=== PATIENT | female | born 1975 | race African-American/Black ===

== ENCOUNTER 2018-12-07 09:43 | Emergency (ER) | payer OTHER ==
--- OUTSIDE RECORDS SUMMARY | 2018-12-07 10:05 | XMS REPORT | Continuity of Care Document ---
:1975 Author Organization [facility] Care Team Providers Name Role Phone [facility] Unavailable Unavailable Problems Problem Status Onset Classification Date Comments Source Date Reported Essential Active Problem 10/02/2017 Comp hypertension [facility] Shortness of Active Problem 10/02/2017 Comp breath [facility] Abnormal EKG Active Diagnosis 10/02/2017 Comp [facility] Morbid obesity Active Problem 10/02/2017 Comp due to excess Heart calories Care Body mass index Active Problem 10/02/2017 Comp of 40.0-44.9 in Heart adult [facility] Insulin Active Problem 10/02/2017 Comp resistance [facility] Atypical chest Active Diagnosis 10/02/2017 Comp pain [facility] Family history Active Problem 10/02/2017 Comp of premature CAD [facility] Medications Medication Details Route Status Patient Ordering Order Source Instructions Provider Date Vitamin D 1 tab NA Active 2000 daily [place] [facility] 018 [facility] levothyroxine 1 tab(s) orally Active 175 mcg (0.175 [place] [facility] mg) orally once 018 [facility] Tradjenta 1 tab(s) orally Active 5 mg orally [place] [facility] once a day 018 [facility] irbesartan 1 tab(s) orally Active 150 mg orally [place] Comp once a day 018 [facility] Allergies, Adverse Reactions, Alerts Substance Category Reaction Severity Reaction Status Date Comments Source type Reported aspirin Adverse Info Not Adverse Active Comp Reaction Available Reaction 8 [facility] ibuprofen Adverse Info Not Adverse Active Comp Reaction Available Reaction 8 [facility] Immunizations No Data Provided for This Section Results No Data Provided for This Section Pathology Reports No Data Provided for This Section Diagnostic Reports No Data Provided for This Section Consultation Notes No Data Provided for This Section Discharge Summaries No Data Provided for This Section History and Physicals No Data Provided for This Section Vital Signs Vital Sign Value Date Comments Source Diastolic (mm Hg) 86 09/24/2017 Comp [facility] Systolic (mm Hg) 128 09/24/2017 [facility] Weight 250 09/24/2017 [facility] Height 63.5 09/24/2017 [facility] Diastolic (mm Hg) 90 08/13/2017 [facility] Systolic (mm Hg) 142 08/13/2017 [facility] Weight 251 08/13/2017 [facility] Height 63.5 08/13/2017 [facility] Encounters No Data Provided for This Section Procedures No Data Provided for This Section Assessment and Plan No Data Provided for This Section Plan of Care No Data Provided for This Section Social History No Data Provided for This Section Family History No Data Provided for This Section Advance Directives No Data Provided for This Section Functional Status No Data Provided for This Section
--- OUTSIDE RECORDS SUMMARY | 2018-12-07 10:05 | XMS REPORT ---
:1975 Author Organization [employer] Care Team Providers Name Role Phone [facility] Provider Role Unavailable Allergies No Known Allergies Problems Problem Type Condition Code Onset Dates Condition Status Problem Essential (primary) hypertension I10 Active Medications No Known Medications Results No Known Results Summary Purpose [employer] Submission
--- OUTSIDE RECORDS SUMMARY | 2018-12-07 10:05 | XMS REPORT ---
:1975 Author Organization [employer] Care Team Providers Name Role Phone David Cor[facility] Provider Role Unavailable Allergies No Known Allergies Problems Problem Type Condition Code Onset Dates Condition Status Problem Essential (primary) hypertension I10 Active Problem Shortness of breath R06.02 Active Problem Abnormal EKG R94.31 Active Problem Morbid (severe) obesity due to E66.01 Active excess calories Problem Body mass index (BMI) of 40.0-44.9 Z68.41 Active in adult Problem Insulin resistance E88.81 Active Problem Atypical chest pain R07.89 Active Problem Family history of premature CAD Z82.49 Active Medications No Known Medications Results No Known Results Summary Purpose [employer] Submission
--- OUTSIDE RECORDS SUMMARY | 2018-12-07 10:05 | XMS REPORT | Clinical Summary ---
:1975 Author Organization [facility] Address [address] [place] [address] Care Team Providers Name Role Phone Asked, No Pcp Primary Care Provider Unavailable Allergies Active Allergy Reactions Severity Noted Date Comments Aspirin Other (See Comments) High 07/07/2015 Other reaction(s): Headache Ibuprofen Other (See Comments) High 07/07/2015 Other reaction(s): Headache Medications Medication Sig Dispensed Refills Start Date End Date Status levothyroxine Take 1 tablet 0 Active (SYNTHROID, by mouth LEVOXYL) 200 mcg daily. tablet METFORMIN HCL Take by mouth. 0 Active (METFORMIN ORAL) linagliptin Take by mouth 0 Active (TRADJENTA ORAL) daily. irbesartan (AVAPRO) Take 300 mg by 0 Active 300 MG tablet mouth nightly. nitrofurantoin, Take 1 capsule 10 capsule 0 04/13/2018 Discontinued macrocrystal-monohy (100 mg total) 8 drate, (MACROBID) by mouth 2 100 MG capsule (two) times a day for 5 days. nitrofurantoin, Take 1 capsule 10 capsule 0 04/13/2018 macrocrystal-monohy (100 mg total) 8 drate, (MACROBID) by mouth 2 100 MG capsule (two) times a day for 5 days. nitrofurantoin, Take 1 capsule 10 capsule 0 04/13/2018 macrocrystal-monohy (100 mg total) 8 drate, (MACROBID) by mouth 2 100 MG capsule (two) times a day for 5 days. pantoprazole Take 1 tablet 14 tablet 0 04/19/2018 (PROTONIX) 40 MG EC (40 mg total) 8 tablet by mouth daily for 14 days. traMADol (ULTRAM) Take 1 tablet 15 tablet 0 04/19/2018 50 mg tablet (50 mg total) 8 by mouth every 6 (six) hours as needed for moderate pain for up to 7 days. dicyclomine Take 1 tablet 60 tablet 0 05/07/2018 (BENTYL) 20 mg (20 mg total) 9 tablet by mouth 2 (two) times a day for 30 days. Active Problems Problem Noted Date Abnormal glucose level 07/07/2015 Cyst of breast 07/07/2015 Fatigue 07/07/2015 Hypothyroidism 07/07/2015 Vitamin D deficiency 07/07/2015 Malignant neoplasm of thyroid gland 07/07/2015 Encounters Date Type Specialty Care Team Description 07/13/2018 Office Visit Wound Care Ravi Quinn MD 05/07/2018 Emergency Emergency Medicine Chantel Fierro-Guanakito Abdominal pain, MD Adithya unspecified abdominal location (Primary Dx) 04/19/2018 Emergency Emergency Medicine Atif Man Generalized abdominal pain (Primary Dx); MD Gutierrez Uterine leiomyoma, unspecified location 04/13/2018 Emergency Emergency Medicine [facility], Acute UTI (Primary Dx); MD Juan Manuel Uterine leiomyoma, unspecified location 04/13/2018 Travel after 12/06/2017 Immunizations Name Dates Previously Given Next Due Influenza Trivalent 03/25/2014 Social History Tobacco Use Types Packs/Day Years Used Date Never Smoker Smokeless Tobacco: Never Used Alcohol Use Drinks/Week oz/Week Comments No Sex Assigned at Date Recorded Female 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 Last Filed Vital Signs Vital Sign Reading Time Taken Blood Pressure 123/62 05/07/2018 3:37 PM ADVERTISING ANALYST Pulse 74 05/07/2018 3:37 PM ADVERTISING ANALYST Temperature 36.9 C (98.4 F) 05/07/2018 3:37 PM ADVERTISING ANALYST Respiratory Rate 18 05/07/2018 3:37 PM ADVERTISING ANALYST Oxygen Saturation 99% 05/07/2018 3:37 PM ADVERTISING ANALYST Inhaled Oxygen Concentration - - Weight 113 kg (250 lb) 05/07/2018 3:37 PM ADVERTISING ANALYST Height 162.6 cm (5' 4") 05/07/2018 3:37 PM ADVERTISING ANALYST Body Mass Index 42.91 05/07/2018 3:37 PM ADVERTISING ANALYST Plan of Treatment Health Maintenance Due Date Last Done Comments DIABETIC RETINAL EYE EXAM 1975 DIABETIC FOOT EXAM 1983 INFLUENZA VACCINE 12/23/2018 03/25/2014 Procedures Procedure Name Priority Date/Time Associated Comments Diagnosis GRAM STAIN Routine 07/13/2018 1:15 Results for this PM ADVERTISING ANALYST procedure are in the results section. ANAEROBIC CULTURE Routine 07/13/2018 1:15 Results for this PM ADVERTISING ANALYST procedure are in the results section. AEROBIC CULTURE Routine 07/13/2018 1:15 Results for this PM ADVERTISING ANALYST procedure are in the results section. US PELVIC TRANSVAGINAL STAT 04/19/2018 6:02 Results for this AM ADVERTISING ANALYST procedure are in the results section. US PELVIC STAT 04/19/2018 6:02 Results for this TRANSABDOMINAL AM ADVERTISING ANALYST procedure are in the results section. URINALYSIS, AUTOMATED STAT 04/19/2018 5:21 Results for this WITH MICROSCOPY AM ADVERTISING ANALYST procedure are in the results section. ESTIMATED GFR STAT 04/19/2018 5:00 Results for this AM ADVERTISING ANALYST procedure are in the results section. LIPASE LEVEL STAT 04/19/2018 5:00 Results for this AM ADVERTISING ANALYST procedure are in the results section. COMPREHENSIVE METABOLIC STAT 04/19/2018 5:00 Results for this PANEL AM ADVERTISING ANALYST procedure are in the results section. HC COMPLETE BLD COUNT STAT 04/19/2018 5:00 Results for this W/AUTO DIFF AM ADVERTISING ANALYST procedure are in the results section. CT ABDOMEN PELVIS W STAT 04/13/2018 1:51 Results for this CONTRAST PM ADVERTISING ANALYST procedure are in the results section. ECG 12-LEAD STAT 04/13/2018 12:39 Results for this PM ADVERTISING ANALYST procedure are in the results section. ECG ED PRELIMINARY Routine 04/13/2018 12:30 Results for this INTERPRETATION PM ADVERTISING ANALYST procedure are in the results section. ESTIMATED GFR STAT 04/13/2018 12:25 Results for this PM ADVERTISING ANALYST procedure are in the results section. LIPASE LEVEL STAT 04/13/2018 12:25 Results for this PM ADVERTISING ANALYST procedure are in the results section. COMPREHENSIVE METABOLIC STAT 04/13/2018 12:25 Results for this PANEL PM ADVERTISING ANALYST procedure are in the results section. HCG QUALITATIVE, URINE STAT 04/13/2018 12:25 Results for this SCREEN PM ADVERTISING ANALYST procedure are in the results section. URINALYSIS SCREEN AND STAT 04/13/2018 12:25 Results for this MICROSCOPY, WITH REFLEX PM ADVERTISING ANALYST procedure are in TO CULTURE the results section. HC COMPLETE BLD COUNT STAT 04/13/2018 12:25 Results for this W/AUTO DIFF PM ADVERTISING ANALYST procedure are in the results section. GRAM STAIN STAT 04/13/2018 12:25 Results for this PM ADVERTISING ANALYST procedure are in the results section. URINE CULTURE STAT 04/13/2018 12:25 Results for this PM ADVERTISING ANALYST procedure are in the results section. after 12/06/2017 Results Aerobic culture (07/13/2018 1:15 PM ADVERTISING ANALYST) Aerobic culture Proteus mirabilis [facility] isolate [facility] HOSPITAL This organism is NOT a carbapenemase producing organism. (A) Comment: Specimen Information Specimen Source: Wound Specimen Site: Abdomen Aerobic culture Enterococcus faecalis [facility] isolate Recovered in Broth only: HOSPITAL The performance characteristics of this assay on this isolate were validated by the Microbiology Laboratory at [facility].This source has not been approved by the U.S. Food and Drug Administration.The results are not intended to be used as the sole means for clinical diagnosis or patient management.The Microbiology Laboratory is authorized under the clinical Laboratory Improvement Amendments of 1988 (CLIA-88) to perform high complexity testing. The performance characteristics of this assay on this isolate were validated by the Microbiology Laboratory at [facility].This source has not been approved by the U.S. Food and Drug Administration.The results are not intended to be used as the sole means for clinical diagnosis or patient management.The Microbiology Laboratory is authorized under the clinical Laboratory Improvement Amendments of 1988 (CLIA-88) to perform high complexity testing. (A) Specimen Wound Organism Antibiotic Method Susceptibility Proteus mirabilis Amikacin LIAM 8 mcg/mL: Susceptible Proteus mirabilis Amoxicillin/Clavulanate LIAM <=2/1 mcg/mL: Susceptible Proteus mirabilis Ampicillin/Sulbactam LIAM <=1/0.5 mcg/mL: Susceptible Proteus mirabilis Ampicillin LIAM <=2 mcg/mL: Susceptible Proteus mirabilis Aztreonam LIAM <=1 mcg/mL: Susceptible Proteus mirabilis Cefazolin LIAM 8 mcg/mL: Resistant Proteus mirabilis Cefoxitin LIAM <=4 mcg/mL: Susceptible Proteus mirabilis Ceftazidime LIAM <=0.5 mcg/mL: Susceptible Proteus mirabilis Ceftriaxone LIAM <=0.5 mcg/mL: Susceptible Proteus mirabilis Cefuroxime Sodium LIAM <=4 mcg/mL: Susceptible Proteus mirabilis Ciprofloxacin LIAM <=0.5 mcg/mL: Susceptible Proteus mirabilis Ertapenem LIAM <=0.125 mcg/mL: Susceptible Proteus mirabilis Gentamicin LIAM 4 mcg/mL: Susceptible Proteus mirabilis Levofloxacin LIAM <=1 mcg/mL: Susceptible Proteus mirabilis Minocycline LIAM mcg/mL: Resistant Proteus mirabilis Piperacillin/Tazobactam LIAM <=2/4 mcg/mL: Susceptible Proteus mirabilis Tetracycline LIAM >8 mcg/mL: Resistant Proteus mirabilis Tigecycline LIAM mcg/mL: Resistant Proteus mirabilis Tobramycin LIAM 4 mcg/mL: Susceptible Proteus mirabilis Trimethoprim/Sulfamethoxazol LIAM 1/19 mcg/mL: Susceptible e Proteus mirabilis Cefepime LIAM <=0.5 mcg/mL: Susceptible Enterococcus faecalis Ampicillin LIAM 1 mcg/mL: Susceptible Enterococcus faecalis Erythromycin LIAM >4 mcg/mL: Resistant Enterococcus faecalis Gentamicin-Syn LIMA <=500 mcg/mL: Susceptible Enterococcus faecalis Linezolid LIAM <=1 mcg/mL: Susceptible Enterococcus faecalis Minocycline LIAM >8 mcg/mL: Resistant Enterococcus faecalis Vancomycin LIAM 1 mcg/mL: Susceptible Performing Organization Address City/[facility] Phone Number [facility] DEPARTMENT OF PATHOLOGY AND [address] [place] [phone] Gram stain (07/13/2018 1:15 PM ADVERTISING ANALYST)Only the most recent of2 resultswithin the time period is included. Gram stain isolate Rare WBC's [facility] No organisms seen HOSPITAL Comment: Specimen Information Specimen Source: Wound Specimen Site: Abdomen Specimen Wound Performing Organization Address City/[facility] Phone [facility] DEPARTMENT OF PATHOLOGY AND [address] [place] [address] Anaerobic culture (07/13/2018 1:15 PM ADVERTISING ANALYST) Anaerobic culture No anaerobic organisms isolated. [facility] isolate Comment: HOSPITAL Specimen Information Specimen Source: Wound Specimen Site: Abdomen Specimen Wound Performing Organization Address City/[facility] Phone Number [facility] DEPARTMENT OF PATHOLOGY AND [address] [place] [phone] GENOMIC MEDICINE [facility] [address] [place] [address] US Pelvic Transabdominal (04/19/2018 6:02 AM ADVERTISING ANALYST) Specimen Narrative Performed At US PELVIC TRANSVAGINAL, US PELVIC [facility]DOM[facility]AL [facility] CLINICAL INDICATION:pelvic pain TECHNIQUE: Transvaginal ultrasound imaging of the pelvis was obtained with grayscale, color Doppler, and spectral waveform analysis performed. COMPARISON:None. FINDINGS: UTERUS: *The uterus is enlarged and heterogeneous in echotexture with well-circumscribed masses consistent with leiomyomas. Additional heterogeneity of the myometrium is present reflecting adenomyomatosis. *There is a well-circumscribed 5.9 cm leiomyoma involving the left uterine body with 3 similar leiomyoma on the left. *Nabothian cysts are noted in the cervix. *Measurements:12.40 cm x 7.34 cm x 9.67 cm ENDOMETRIAL STRIPE: *The endometrial stripe complex is not well seen on either transabdominal or transvaginal imaging. *Towards the fundus where it is best seen, it measures 10 mm RIGHT OVARY: *Right ovary is normal in size and appearance without mass. *Measurements: 2.93 cm x 1.56 cm x 2.22 cm *Normal Color and spectral Doppler flow are present. LEFT OVARY: *Left ovary is not diagnostically visualized. *Normal Color and spectral Doppler flow are present. PELVIS: *There is physiologic fluid in the cul-de-sac. IMPRESSION: Fibroid uterus with findings of adenomyosis. Unremarkable appearance of the right ovary. Left ovary not diagnostically visualized. Thank you for allowing us to participate in the care of your patient. [facility]-[id number] Procedure Note Interface, Radiology Results Incoming - 04/19/2018 7:17 AM ADVERTISING ANALYST US PELVIC TRANSVAGINAL, US PELVIC TRANSABDOMINAL CLINICAL INDICATION: pelvic pain TECHNIQUE: Transvaginal ultrasound imaging of the pelvis was obtained with grayscale, color Doppler, and spectral waveform analysis performed. COMPARISON: None. FINDINGS: UTERUS: * The uterus is enlarged and heterogeneous in echotexture with well- circumscribed masses consistent with leiomyomas. Additional heterogeneity of the myometrium is present reflecting adenomyomatosis. * There is a well-circumscribed 5.9 cm leiomyoma involving the left uterine body with 3 similar leiomyoma on the left. * Nabothian cysts are noted in the cervix. * Measurements: 12.40 cm x 7.34 cm x 9.67 cm ENDOMETRIAL STRIPE: * The endometrial stripe complex is not well seen on either transabdominal or transvaginal imaging. * Towards the fundus where it is best seen, it measures 10 mm RIGHT OVARY: * Right ovary is normal in size and appearance without mass. * Measurements: 2.93 cm x 1.56 cm x 2.22 cm * Normal Color and spectral Doppler flow are present. LEFT OVARY: * Left ovary is not diagnostically visualized. * Normal Color and spectral Doppler flow are present. PELVIS: * There is physiologic fluid in the cul-de-sac. IMPRESSION: Fibroid uterus with findings of adenomyosis. Unremarkable appearance of the right ovary. Left ovary not diagnostically visualized. Thank you for allowing us to participate in the care of your patient. [facility]-[id number] Performing Organization Address City/State/Zipcode Phone Number [employer] [address] [place] [address] US Pelvic Transvaginal (04/19/2018 6:02 AM ADVERTISING ANALYST) Specimen Narrative Performed At US PELVIC TRANSVAGINAL, US PELVIC TRANSABDOMINAL [facility] CLINICAL INDICATION:pelvic pain TECHNIQUE: Transvaginal ultrasound imaging of the pelvis was obtained with grayscale, color Doppler, and spectral waveform analysis performed. COMPARISON:None. FINDINGS: UTERUS: *The uterus is enlarged and heterogeneous in echotexture with well-circumscribed masses consistent with leiomyomas. Additional heterogeneity of the myometrium is present reflecting adenomyomatosis. *There is a well-circumscribed 5.9 cm leiomyoma involving the left uterine body with 3 similar leiomyoma on the left. *Nabothian cysts are noted in the cervix. *Measurements:12.40 cm x 7.34 cm x 9.67 cm ENDOMETRIAL STRIPE: *The endometrial stripe complex is not well seen on either transabdominal or transvaginal imaging. *Towards the fundus where it is best seen, it measures 10 mm RIGHT OVARY: *Right ovary is normal in size and appearance without mass. *Measurements: 2.93 cm x 1.56 cm x 2.22 cm *Normal Color and spectral Doppler flow are present. LEFT OVARY: *Left ovary is not diagnostically visualized. *Normal Color and spectral Doppler flow are present. PELVIS: *There is physiologic fluid in the cul-de-sac. IMPRESSION: Fibroid uterus with findings of adenomyosis. Unremarkable appearance of the right ovary. Left ovary not diagnostically visualized. Thank you for allowing us to participate in the care of your patient. [facility]-[id number] Procedure Note Interface, Radiology Results Incoming - 04/19/2018 7:17 AM ADVERTISING ANALYST US PELVIC TRANSVAGINAL, US PELVIC TRANSABDOMINAL CLINICAL INDICATION: pelvic pain TECHNIQUE: Transvaginal ultrasound imaging of the pelvis was obtained with grayscale, color Doppler, and spectral waveform analysis performed. COMPARISON: None. FINDINGS: UTERUS: * The uterus is enlarged and heterogeneous in echotexture with well- circumscribed masses consistent with leiomyomas. Additional heterogeneity of the myometrium is present reflecting adenomyomatosis. * There is a well-circumscribed 5.9 cm leiomyoma involving the left uterine body with 3 similar leiomyoma on the left. * Nabothian cysts are noted in the cervix. * Measurements: 12.40 cm x 7.34 cm x 9.67 cm ENDOMETRIAL STRIPE: * The endometrial stripe complex is not well seen on either transabdominal or transvaginal imaging. * Towards the fundus where it is best seen, it measures 10 mm RIGHT OVARY: * Right ovary is normal in size and appearance without mass. * Measurements: 2.93 cm x 1.56 cm x 2.22 cm * Normal Color and spectral Doppler flow are present. LEFT OVARY: * Left ovary is not diagnostically visualized. * Normal Color and spectral Doppler flow are present. PELVIS: * There is physiologic fluid in the cul-de-sac. IMPRESSION: Fibroid uterus with findings of adenomyosis. Unremarkable appearance of the right ovary. Left ovary not diagnostically visualized. Thank you for allowing us to participate in the care of your patient. [facility]-[id number] Performing Organization Address City/State/Zipcode Phone Number [facility] [address] [place] [address] Urinalysis, automated with microscopy (04/19/2018 5:21 AM ADVERTISING ANALYST) Color, UA Yellow YELLOW [facility] Appearance, UA Hazy (A) Clear [facility] Specific gravity, UA 1.017 1.005 - 1.030 [facility] pH, UA 5.0 5.0 - 8.0 [facility] Protein, UA Negative Negative [facility] Glucose, UA Negative Negative [facility] Ketones, UA Negative Negative [facility] Bilirubin, UA Negative Negative [facility] Blood, UA Negative Negative [facility] Nitrite, UA Negative NEGATIVE [facility] Urobilinogen, UA 0.2 <2.0 E.U./dL [facility] Leukocyte esterase, Negative Negative [facility] UA [facility] Epithelial cells, UA 10 0 - 15 /HPF [facility] WBC, UA 8 (H) 0 - 5 /Hpf [facility] RBC, UA 4 0 - 5 /HPF [facility] Bacteria, UA Few (A) None seen [facility] Yeast, UA None seen None Seen [facility] Yeast with None seen [facility] pseudohyphae, UA [facility] Specimen Urine - Urine, clean catch Performing Organization Address City/State/Zipcode Phone Number [facility] DEPARTMENT OF PATHOLOGY [address] [place] [address] [place] [address] HOSPITAL Estimated GFR (04/19/2018 5:00 AM ADVERTISING ANALYST)Only the most recent of2 resultswithin the time period is included. Estimated GFR >=90 mL/min/1.73 [facility] Comment: [address]ergoryUnitsInterpretation [facility] G1 >=90 Normal or high G2 60-89Mildly decreased [id number] to moderately decreased [id number] to severely decreased G4 15-29Severely decreased G5 <15Kidney failure The eGFR was calculated using the Chronic Kidney Disease Epidemiology Collaboration (CKD-EPI) equation. Interpretation is based on recommendations of the National Kidney Foundation-Kidney Disease Outcomes Quality Initiative (NKF-KDOQI) published in 2014. Specimen Plasma specimen Performing Organization Address City/State/Zipcode Phone Number [facility] DEPARTMENT OF PATHOLOGY [address] [place] [address] [place] [address] [facility] CBC with platelet and differential (04/19/2018 5:00 AM ADVERTISING ANALYST)Only the most recent of2 resultswithin the time period is included. WBC 4.4 (L)Comment: 4.5 - 11.0 [facility] WBC was corrected k/uL [facility] RBC 4.49 4.20 - 5.50 [facility] M/uL [facility] HGB 13.6 (L) 14.0 - 18.0 [facility] g/dL [facility] HCT 41.4 37.0 - 47.0 [facility] MCV 92.2 82.0 - 100.0 [facility] MCH 30.3 27.0 - 34.0 [facility] MCHC 32.9 31.0 - 37.0 [facility] g/dL [facility] RDW - SD 43.9 37.0 - 55.0 [facility] MPV 9.9 8.8 - 13.2 [facility] Platelet count 260 150 - 400 [facility] K/uL [facility] Nucleated RBC 1.60 /100 WBC [facility] Neutrophils 45.8 39.0 - 69.0 [facility] Lymphocytes 38.5 25.0 - 45.0 [facility] Monocytes 13.4 (H) 0.0 - 10.0 % [facility] Eosinophils 1.4 0.0 - 5.0 % [facility] Basophils 0.7 0.0 - 1.0 % [facility] Immature 0.2Comment: 0.0 - 1.0 % [facility] granulocytes "Immature [place] granulocytes" [facility] (promyelocytes, myelocytes, metamyelocytes) Specimen Blood Performing Organization Address City/State/Zipcode Phone Number [facility] DEPARTMENT OF PATHOLOGY [address] [place] [phone] AND GENOMIC MEDICINE [place] [phone] HOSPITAL Lipase level (04/19/2018 5:00 AM ADVERTISING ANALYST)Only the most recent of2 resultswithin the time period is included. Lipase 17 (L) 23 - 300 U/L [facility] Specimen Plasma specimen Performing Organization Address City/State/[facility] Phone Number [facility] DEPARTMENT OF PATHOLOGY [address] [place] [address]. [address] [place] [address] AND GENOMIC MEDICINE [address] Comprehensive metabolic panel (04/19/2018 5:00 AM ADVERTISING ANALYST)Only the most recent of2 resultswithin the time period is included. Sodium 138 135 - 148 mEq/L [facility] Potassium 3.7 3.5 - 5.0 mEq/L [facility] Chloride 101 99 - 109 mEq/L [facility] CO2 25 24 - 31 mEq/L [facility] Anion gap 12@ANIO 7 - 15 mEq/L [facility] BUN 8 8 - 24 mg/dL [facility] Creatinine 0.80 0.50 - 0.90 [facility] mg/dL [facility] Glucose 134 (H) 65 - 99 mg/dL [facility] Calcium 8.3 (L) 8.6 - 10.6 [facility] mg/dL [facility] Protein 7.6 6.3 - 8.2 g/dL [facility] Albumin 4.3 3.5 - 5.0 g/dL [facility] A/G ratio 1.30 0.70 - 3.80 [facility] Alkaline phosphatase 55 30 - 115 U/L [facility] AST 34 15 - 46 U/L [facility] ALT 43 10 - 55 U/L [facility] Total bilirubin 0.7 0.2 - 1.2 mg/dL [facility] Specimen Plasma specimen Performing Organization Address [facility] Phone Number [facility] DEPARTMENT OF PATHOLOGY [address] [place] [address]. [address] [place] [address] AND GENOMIC MEDICINE [address] Abdomen Pelvis W Contrast (04/13/2018 1:51 PM ADVERTISING ANALYST) Specimen Narrative Performed At EXAMINATION:CT ABDOMEN PELVIS W CONTRAST [facility] CLINICAL HISTORY:RLQ abdominal pain TECHNIQUE: Multiple axial images of the abdomen and pelvis were obtained following intravenous administration of iodinated contrast. Sagittal and coronal computerized reformatted images were also obtained. Approximately 75 cc of Omnipaque [address] scan performed using radiation dose reduction techniques. Technical factors are evaluated and adjusted to ensure appropriate moderation of exposure. Automated dose management technology is applied to adjust the radiation dose to minimize expose whileachieving a diagnostic quality image. COMPARISON:None. FINDINGS: Lung bases: The lung bases are unremarkable. Liver: There is no intrahepatic biliary dilatation or mass. The liver is normal in attenuation, contour and size. Gallbladder: Surgically absent.. Pancreas: The pancreas is normal in caliber and attenuation. No inflammatory process. The pancreatic duct is within normal limits. Spleen: The spleen is normal in appearance.. Kidneys and ureters: The kidneys function symmetrically. There is no enhancing renal lesion. No hydronephrosis or renal stone. The ureters are normal in course and caliber. Adrenal glands: Unremarkable. GI tract: The small bowel is normal in course and caliber. The colon is unremarkable. No bowel wall thickening is identified. There is no acute inflammatory process. The appendix is normal. No right lower quadrant inflammation is seen. The stomach is unremarkable. Fluid: None. Pelvis: Bladder: The urinary bladder is unremarkable. Genitalia: Heaviness attenuation and lobular in contour of the uterus are seen, suggesting of uterine fibroids.. Fluid: None. Bones: Unremarkable. Retroperitoneum/intraperitoneum: No retroperitoneal or mesenteric pathologic lymphadenopathy is seen. Vasculature: No evidence of aortic aneurysm or dissection.The mesenteric vessels and visceral vessel are patent. Abdominal wall: Unremarkable. IMPRESSION: No CT evidence of appendicitis, colitis or bowel obstruction. Findings suggestive of uterine fibroids. Pelvic ultrasound would be of use for further evaluation. Unremarkable exam otherwise. [id number] Procedure Note Interface, Radiology Results Incoming - 04/13/2018 2:01 PM ADVERTISING ANALYST EXAMINATION: CT ABDOMEN PELVIS W CONTRAST CLINICAL HISTORY: RLQ abdominal pain TECHNIQUE: Multiple axial images of the abdomen and pelvis were obtained following intravenous administration of iodinated contrast. Sagittal and coronal computerized reformatted images were also obtained. Approximately 75 cc of Omnipaque [address] scan performed using radiation dose reduction techniques. Technical factors are evaluated and adjusted to ensure appropriate moderation of exposure. Automated dose management technology is applied to adjust the radiation dose to minimize expose while achieving a diagnostic quality image. COMPARISON: None. FINDINGS: Lung bases: The lung bases are unremarkable. Liver: There is no intrahepatic biliary dilatation or mass. The liver is normal in attenuation, contour and size. Gallbladder: Surgically absent.. Pancreas: The pancreas is normal in caliber and attenuation. No inflammatory process. The pancreatic duct is within normal limits. Spleen: The spleen is normal in appearance.. Kidneys and ureters: The kidneys function symmetrically. There is no enhancing renal lesion. No hydronephrosis or renal stone. The ureters are normal in course and caliber. Adrenal glands: Unremarkable. GI tract: The small bowel is normal in course and caliber. The colon is unremarkable. No bowel wall thickening is identified. There is no acute inflammatory process. The appendix is normal. No right lower quadrant inflammation is seen. The stomach is unremarkable. Fluid: None. Pelvis: Bladder: The urinary bladder is unremarkable. Genitalia: Heaviness attenuation and lobular in contour of the uterus are seen , suggesting of uterine fibroids.. Fluid: None. Bones: Unremarkable. Retroperitoneum/intraperitoneum: No retroperitoneal or mesenteric pathologic lymphadenopathy is seen. Vasculature: No evidence of aortic aneurysm or dissection. The mesenteric vessels and visceral vessel are patent. Abdominal wall: Unremarkable. IMPRESSION: No CT evidence of appendicitis, colitis or bowel obstruction. Findings suggestive of uterine fibroids. Pelvic ultrasound would be of use for further evaluation. Unremarkable exam otherwise. [id number] Performing Organization Address City/State/Zipcode Phone Number [facility] [address] [place] [address] ECG 12 lead (04/13/2018 12:39 PM ADVERTISING ANALYST) Ventricular rate 67 [facility] Atrial rate 67 [facility] CA interval 186 [facility] QRSD interval 96 [facility] QT interval 432 [facility] QTC interval 456 [facility] P axis 1 42 [facility] QRS axis 1 25 [facility] T wave axis 33 [facility] EKG impression Normal sinus [facility] MUSE rhythm-Nonspecific T wave abnormality-Electronica lly Signed By Enzo GAONA, Morgan Golden ([id number]) on 04/14/2018 8:35:10 PM Specimen Narrative Performed At Performing Organization Address City/State/Zipcode Phone Number [facility] [address] [place] [address] ECG ED Preliminary Interpretation - Not an Order (04/13/2018 12:30 PM ADVERTISING ANALYST) Narrative Performed At Juan Manuel Maldoando MD 04/13/20189:19 PM ECG ED Preliminary Interpretation - Not an Order Performed by: Juan Manuel Maldonado MD Authorized by: Juan Manuel Maldonado MD ECG reviewed by ED Physician in the absence of a glassware finisher: yes Interpretation: Interpretation: non-specific Rate: ECG rate:67 ECG rate assessment: normal Rhythm: Rhythm: sinus rhythm Ectopy: Ectopy: none Conduction: Conduction: normal ST segments: ST segments:Normal T waves: T waves: non-specific Comments: Normal sinus rhythm Urinalysis screen and microscopy, with reflex to culture (04/13/2018 12:25 PM ADVERTISING ANALYST) Specimen site Clean catch [facility] Color, UA Yellow YELLOW [facility] Appearance, UA Cloudy (A) Clear [facility] Specific gravity, 1.025 1.005 - 1.030 [facility] pH, UA 5.0 5.0 - 8.0 [facility] Protein, UA Negative Negative [facility] Glucose, UA Negative Negative [facility] Ketones, UA Negative Negative [facility] Bilirubin, UA Negative Negative [facility] Blood, UA Negative Negative [facility] Nitrite, UA Negative NEGATIVE [facility] Urobilinogen, UA 2.0 <2.0 E.U./dL [facility] Leukocyte esterase, Moderate (A) Negative [facility] Epithelial cells, >20 (H) 0 - 15 /HPF [facility] WBC, UA 3 0 - 5 /Hpf [facility] RBC, UA 8 (H) 0 - 5 /HPF [facility] Bacteria, UA None seen None seen [facility] Yeast, UA None seen None Seen [facility] Yeast with None seen [facility] pseudohyphae, UA [facility] Hyaline casts, UA 0-2 0 - 1 [facility] Specimen Urine Performing Organization Address [facility]/Zipcode Phone Number [facility] DEPARTMENT OF PATHOLOGY [address] [place] [address] [address] [place] [address] hCG qualitative, urine screen (04/13/2018 12:25 PM ADVERTISING ANALYST) Pathologist [facility] hCG qualitative, NegativeComment: Negative [facility] urine Sensitivity of HCG [place] test: 25 mIU/ml HOSPITAL Specimen Urine Performing Organization Address [facility]/Zipcode Phone Number [facility] DEPARTMENT OF PATHOLOGY [address] [place] [address] [address] [place] [address] Urine culture (04/13/2018 12:25 PM ADVERTISING ANALYST) Pathologist [facility] Urine culture [facility] isolate susceptibility testing.Culture is being reincubated for HOSPITAL additional growth. Mixed farrukh <=10-3 col/cc Comment: Specimen Information Specimen Source: Urine Specimen Site: Clean catch Specimen Urine Performing Organization Address City/State/Zipcode Phone Number [facility] DEPARTMENT OF PATHOLOGY AND [address] [place] [address] [facility] [address] [place] [id number] after 12/06/2017 Advance Directives Patient has advance care planning documents on file. For more information, please contact:Winston Narayanan[address] [place] [address]
--- OUTSIDE RECORDS SUMMARY | 2018-12-07 10:06 | XMS REPORT ---
:1975 Author Organization eClinicalWorks Care Team Providers Name Role Phone David Cornejo Provider Role Unavailable Allergies, Adverse Reactions, Alerts Substance Reaction Event Type aspirin Info Not Available Drug Allergy ibuprofen Info Not Available Drug Allergy Problems Problem Type Condition Code Onset Dates Condition Status Assessment Abnormal EKG R94.31 Active Problem Essential (primary) hypertension I10 Active Assessment Atypical chest pain R07.89 Active Problem Shortness of breath R06.02 Active Problem Abnormal EKG R94.31 Active Problem Morbid (severe) obesity due to E66.01 Active excess calories Problem Body mass index (BMI) of 40.0-44.9 Z68.41 Active in adult Problem Insulin resistance E88.81 Active Problem Atypical chest pain R07.89 Active Problem Family history of premature CAD Z82.49 Active Assessment Body mass index (BMI) of 40.0-44.9 Z68.41 Active in adult Assessment Morbid (severe) obesity due to E66.01 Active excess calories Assessment Insulin resistance E88.81 Active Assessment Family history of premature CAD Z82.49 Active Assessment Shortness of breath R06.02 Active Medications Medication Code Code Instructions Start End Date Status Dosage System Date Vitamin D NDC 0 2000 daily August 13, Active 1 tab 2018 levothyroxine [facility] 88365500914 175 mcg (0.175 August 13, Active 1 tab(s) mg) orally once 2018 a day Tradjenta [facility] 12385305130 5 mg orally once August 13, Active 1 tab(s) a day 2018 irbesartan [facility] 80893448408 150 mg orally August 13, Active 1 tab(s) once a day 2018 Vital Signs Date/Time: August 13, 2017 Blood Pressure Diastolic 90 mm Hg Blood Pressure Systolic 142 mm Hg Weight 251 lbs BMI 43.76 Index Height 63.5 in Results No Known Results Summary Purpose eClinicalWorks Submission
--- OUTSIDE RECORDS SUMMARY | 2018-12-07 10:06 | XMS REPORT ---
:1975 Author Organization [facility] Address [address] [place] [address] Care Team Providers Name Role Phone DR DENIS SALAZAR Unavailable Unavailable Problems This patient has no known problems. Allergies, Adverse Reactions, Alerts This patient has no known allergies or adverse reactions. Medications This patient has no known medications. Encounters Start End Encounter Admission Attending Care Care Encounter Date/Time Date/Time Type Type Clinicians Facility Department ID 2018-08-27 2018-08-27 Outpatient Tristan SALAZAR [facility] [id number] 03:49:00 06:30:00 DENIS Results Test Description Test Time Test Comments Text Results Atomic Results Result Comments CT HEART WO; CALCIUM SCORING CLINICAL INDICATION: E88.81 Metabolic syndromeMODALITY: [employer] Scen[employer] [address] (Iterative dose reduction technique is used).TECHNIQUE: High-resolution gated CT imaging of the chest is performed, attention to coronary arteries. Images are analyzed for the presence and extent of coronary artery calcification, using coronary calcification software on the Andro[employer]. Computed Tomography Dose Index: 11.0 mGy. FINDINGS:Left Main: 0Left Anterior DescendinLeft Circumflex: 0Right Coronary: 0Miscellaneous findings: No pulmonary nodules identified. No suspicious regional lymphadenopathy or additional regional findings. Atheromatous calcification of the aortic arch. Small amount of pericardial fluid.IMPRESSION:Total Agatston Calcium Score: 0Calcium score 0: No identifiable plaque. Very low cardiovascular risk Less than 5% chance of CAD, negative.Calcium score 1-10: Minimal plaque burden. Significant coronary artery disease very unlikely.Calcium score 11-100: Mild plaque burden. Likely mild or minimal coronary artery stenosis.Calcium score 101-400: Moderate plaque burden. Moderate non-obstructive coronary artery disease highly likely.Calcium score over 400: Extensive plaque burden. High likelihood of at least one significant coronary stenosis 50% diameter.RS 436: [id number] (For official use only.)
--- OUTSIDE RECORDS SUMMARY | 2018-12-07 10:06 | XMS REPORT ---
[...] history of premature CAD Z82.49 Active Medications Medication Code Code Instructions Start End Date Status Dosage System Date levothyroxine [facility] 95163150745 175 mcg (0.175 August 13, Active 1 tab(s) mg) orally once 2018 a day Vitamin D NDC 0 2000 daily August 13, Active 1 tab 2017 irbesartan [facility] 10741196205 150 mg orally August 13, Active 1 tab(s) once a day 2017 Tradjenta [facility] 14576191897 5 mg orally once August 13, Active 1 tab(s) a day 2018 Vital Signs Date/Time: September 24, 2017 Blood Pressure Diastolic 86 mm Hg Blood Pressure Systolic 128 mm Hg Weight 250 lbs BMI 43.59 Index Height 63.5 in Results Name Result Date Reference Range Unit Abnormality Flag EKG Summary Purpose eClinicalWorks Submission
--- OUTSIDE RECORDS SUMMARY | 2018-12-07 10:06 | XMS REPORT ---
:1975 Author Organization eClinicalWorks Care Team Providers Name Role Phone David Cornejo Provider Role Unavailable Allergies No Known Allergies Problems No Known Problems Medications No Known Medications Results No Known Results Summary Purpose eClinicalWorks Submission
[2018-12-07 10:46] LABS: Urine Bacteria >50 /HPF (<20); Urine Culture Reflex Order REFLEXED; Urine RBC <5 /HPF (NONE SEEN)
[2018-12-07] MEDS ORDERED: NA CHLORIDE 0.9% 1,000 ML ONE (11:24)
[2018-12-07] MEDS ORDERED: CEFTRIAXONE/SWI 1gm 1 GM/10 ML SYR ONE (11:24)
[2018-12-07 11:28] LABS: Urine Blood 1+ (NEG); Urine Glucose NEGATIVE (NEG); Urine Protein 1+ (NEG); Urine Specific Gravity 1.025 (1.005-1.030)
--- NOTE | 2018-12-07 11:28 | RAD REPORT ---
EXAM DESCRIPTION: CT - Stone Protocol - 12/07/2018 11:15 am CLINICAL HISTORY: Flank pain. ABD PAIN COMPARISON: No comparisons TECHNIQUE: Axial images were obtained without oral or IV contrast. Lack of contrast limits solid org an and vascular assessment. The [id number] spans the entirety of the system partially obscuring uppermost abdomen and lung bases. Coronal reformatted images were obtained and reviewed. All CT scans are performed using dose optimization technique as appropriate and may include automated exposure control or mA/KV adjustment according to patient size. FINDINGS: The lower lung aceves are clear. Cholecystectomy clips. Imaged portions of the liver and spleen show no suspicious findings on non-contrast imaging. The panc reas and adrenal glands are normal. No pathologic lymphadenopathy in the abdomen or pelvis. Tiny calculus is seen in the inferior left kidney without hydronephrosis. No additional renal calculu s seen. No hydronephrosis evident. No bowel obstruction, free air, free fluid or abscess. Normal appendix noted. No significant bony abnormality. IMPRESSION: Tiny inferior left renal calculus without obstruction.
[2018-12-07 11:45] LABS: Absolute Lymphocytes (CBC) 1.8 K/uL (0.7-4.9); Basophils % 1.2 % (0-1.3); Eosinophils % 0.8 % (0-4.4); Lymphocytes % 32.1 % (15.3-44.8); MPV 8.6 fL (7.6-11.3); Monocytes % 8.6 % (3.3-12.3); RBC Red Blood Cell Count 5.06 M/uL (3.86-4.86)
[2018-12-07] MEDS ORDERED: MORPHINE 4 MG/ML SYR ONE (12:08)
[2018-12-07] MEDS ORDERED: levoFLOXacin 750 MG TAB ONE (12:08)
[2018-12-07] MEDS ORDERED: ONDANSETRON 4 MG/2 ML VIAL ONE (12:08)
--- NOTE | 2018-12-07 12:30 | ER ---
Nurse's Notes [facility] Name: Tessie Cleveland Age: 43 yrs Sex: Female : 1975 Arrival Date: 12/07/2018 Time: 09:47 Bed 23 Private MD: None, None Diagnosis: Urinary tract infection, site not specified;Dysuria Presentation: 12/07 09:50 Presenting complaint: Patient states: i have a pain on my R flank area, it started for hj a while and on and off and been progressively been increasing in pain; and pain on my L lower abd area and when i pee it hurts; denies fever and chills; tricia N/V;. Transition of care: patient was not received from another setting of care. Onset of symptoms was December 07, 2018. Risk Assessment: Do you want to hurt yourself or someone else? Patient reports no desire to harm self or others. Initial Sepsis Screen: Does the patient meet any 2 criteria? No. Patient's initial sepsis screen is negative. Does the patient have a suspected source of infection? No. Patient's initial sepsis screen is negative. Care prior to arrival: None. 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 - Social history:: Smoking status: Patient/guardian denies using tobacco. - Family history:: not pertinent. - Ebola Screening: : Patient negative for fever greater than or equal to 101.5 degrees Fahrenheit, and additional compatible Ebola Virus Disease symptoms Patient denies exposure to infectious person Patient denies travel to an Ebola-affected area in the 21 days before illness onset No symptoms or risks identified at this time. Screenin:40 Abuse screen: Denies threats or abuse. Denies injuries from another. Nutritional iw screening: No deficits noted. Tuberculosis screening: No symptoms or risk factors identified. Fall Risk IV access (20 points). Assessment: 10:00 General: Appears in no apparent distress. uncomfortable, Behavior is calm, cooperative, aj1 appropriate for age. Pain: Complains of pain in suprapubic area, posterior aspect of right lateral abdomen, anterior aspect of right lateral abdomen and left lower quadrant Pain currently is 10 out of 10 on a pain scale. Quality of pain is described as aching, sharp, Pain began one week ago. Neuro: Level of Consciousness is awake, alert, obeys commands, Oriented to person, place, time, situation. Cardiovascular: Patient's skin is warm and dry. Respiratory: Airway is patent Respiratory effort is even, unlabored, Respiratory pattern is regular, symmetrical. GI: Abdomen is non-distended, Bowel sounds present X 4 quads. Abd is soft X 4 quads. : Reports burning with urination. EENT: No signs and/or symptoms were reported regarding the EENT system. Derm: No signs and/or symptoms reported regarding the dermatologic system. Skin is pink, warm \T\ dry. normal. Musculoskeletal: No signs and/or symptoms reported regarding the musculoskeletal system. Circulation, motion, and sensation intact. 11:37 General: Appears in no apparent distress. Behavior is calm, cooperative. Pain: iw Complains of pain in anterior aspect of right lateral abdomen and posterior aspect of right lateral abdomen Pain radiates to left lower quadrant Pain currently is 10 out of 10 on a pain scale. Neuro: Level of Consciousness is awake, alert, obeys commands, Oriented to person, place, time, situation, Moves all extremities. Full function. Cardiovascular: Patient's skin is warm and dry. Respiratory: Respiratory effort is even, unlabored, Respiratory pattern is regular, symmetrical. GI: Bowel sounds present X 4 quads. Abd is soft X 4 quads. : Reports burning with urination. Derm: Skin is intact, is healthy with good turgor. Musculoskeletal: Range of motion: intact in all extremities. 12:35 Reassessment: Patient discharge pending lab results per Dr. Arellano. aj1 12:35 Reassessment: Patient appears in no apparent distress at this time. No changes from aj1 previously documented assessment. Patient and/or family updated on plan of care and expected duration. Pain level reassessed. Patient is alert, oriented x 3, equal unlabored respirations, skin warm/dry/pink. 13:06 Reassessment: Dr. Arellano at bedside, okay to discharge patient per Dr. Arellano. aj1 Vital Signs: 09:54 BP 133 / 92; Pulse 75; Resp 18; Temp 97.5(TE); Pulse Ox 100% on R/A; Weight 104.33 kg; hj Height 5 ft. 4 in. (162.56 cm); Pain 10/10; 11:39 BP 131 / 84; Pulse 65; Resp 16; Pulse Ox 98% on R/A; Pain 10/10; iw 12:36 BP 135 / 91; Pulse 65; Resp 18; Pulse Ox 100% on R/A; aj1 09:54 Body Mass Index 39.48 (104.33 kg, 162.56 cm) hj ED Course: 09:47 Patient arrived in ED. dl4 09:48 None, None is Private Physician. dl4 09:53 Triage completed. hj 09:54 Arm band placed on right wrist. hj 10:00 Kelly Barrera, RN is Primary Nurse. aj1 10:00 Patient has correct armband on for positive identification. Bed in low position. Call aj1 light in reach. 10:38 Elmer Arellano MD is Attending Physician. osvaldo 11:11 CT completed. Patient tolerated procedure well. Patient moved to CT via wheelchair. jg6 Patient moved back from CT. 11:17 CT Stone Protocol In Process Unspecified. EDMS 11:20 Initial lab(s) drawn, by me, sent to lab. Inserted saline lock: 20 gauge in right iw antecubital area, using aseptic technique. Blood collected. 11:39 No provider procedures requiring assistance completed. iw 11:40 Caitlin Morris, RN is Primary Nurse. iw 13:15 IV discontinued, intact, bleeding controlled, No redness/swelling at site. Pressure iw dressing applied. Administered Medications: 11:37 Drug: NS 0.9% 1000 ml Route: IV; Rate: 1 bolus; Site: right antecubital; iw 15:09 Follow up: IV Status: Completed infusion iw 11:37 Drug: Rocephin - (cefTRIAXone) 1 grams Route: IVPB; Infused Over: 30 mins; Site: right iw antecubital; 12:02 Drug: LevOfloxacin 750 mg Route: PO; iw 12:30 Follow up: Response: No adverse reaction iw 12:02 Drug: morphine 4 mg Route: IVP; Site: right antecubital; iw 12:40 Follow up: Response: No adverse reaction; Pain is decreased iw 12:03 Drug: Zofran 4 mg Route: IVP; Site: right antecubital; iw 12:30 Follow up: Response: No adverse reaction iw Outcome: 12:29 Discharge ordered by . osvaldo 13:15 Discharged to home ambulatory, with family. iw 13:15 Condition: good 13:15 Discharge instructions given to patient, family, Instructed on discharge instructions, follow up and referral plans. medication usage, Demonstrated understanding of instructions, follow-up care, medications, Prescriptions given X 2. 13:16 Patient left the ED. iw Signatures: Dispatcher [employer] EDMS Kelly Barrera RN RN ajElmer Tafoya MD MD cha Williams, Irene RN RACHID Tre Banks RN RN hj Garcia, Jessica jg6 Luna, David dl4 Corrections: (The following items were deleted from the chart) 09:56 09:54 Pulse 75bpm; Resp 18bpm; Pulse Ox 100% RA; Temp 97.5F Temporal; 104.33 kg; Height hj 5 ft. 4 in.; BMI: 39.4; Pain 10/10; hj
--- NOTE | 2018-12-07 12:30 | EDPHYS ---
Physician Documentation [facility] Name: Tessie Cleveland Age: 43 yrs Sex: Female : 1975 Arrival Date: 12/07/2018 Time: 09:47 Bed 23 Private MD: None, None ED Physician Elmer Arellano HPI: 12/07 11:26 This 43 yrs old Black Female presents to ER via Ambulatory with complaints of Abdominal osvaldo Pain, Urinary Problem. 11:26 The patient presents with abdominal pain in the right upper quadrant, right lower osvaldo quadrant. Onset: The symptoms/episode began/occurred 3 day(s) ago. The patient complains of pain in the right mid back and right low back. The pain radiates. Onset: The symptoms/episode began/occurred 3 day(s) ago. Modifying factors: The symptoms are alleviated by remaining still, the symptoms are aggravated by movement. The patient presents with pain that is acute. The symptoms are located in the right mid back and right low back. The pain does not radiate. 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 - Social history:: Smoking status: Patient/guardian denies using tobacco. - Family history:: not pertinent. - Ebola Screening: : Patient negative for fever greater than or equal to 101.5 degrees Fahrenheit, and additional compatible Ebola Virus Disease symptoms Patient denies exposure to infectious person Patient denies travel to an Ebola-affected area in the 21 days before illness onset No symptoms or risks identified at this time. ROS: 11:26 Constitutional: Negative for fever, chills, and weight loss, Eyes: Negative for injury, osvaldo pain, redness, and discharge, ENT: Negative for injury, pain, and discharge, Neck: Negative for injury, pain, and swelling, Cardiovascular: Negative for chest pain, palpitations, and edema, Respiratory: Negative for shortness of breath, cough, wheezing, and pleuritic chest pain, Back: Negative for injury and pain, : Negative for injury, bleeding, discharge, and swelling, MS/Extremity: Negative for injury and deformity, Skin: Negative for injury, rash, and discoloration, Neuro: Negative for headache, weakness, numbness, tingling, and seizure, Psych: Negative for depression, anxiety, suicide ideation, homicidal ideation, and hallucinations, Allergy/Immunology: Negative for hives, rash, and allergies, Endocrine: Negative for neck swelling, polydipsia, polyuria, polyphagia, and marked weight changes, Hematologic/Lymphatic: Negative for swollen nodes, abnormal bleeding, and unusual bruising. 11:26 Abdomen/GI: Positive for abdominal pain, abdominal cramps, of the posterior aspect of right lateral abdomen, anterior aspect of right lateral abdomen, right upper quadrant and right lower quadrant. Exam: 11:26 Constitutional: This is a well developed, well nourished patient who is awake, alert, osvaldo and in no acute distress. Head/Face: Normocephalic, atraumatic. Eyes: Pupils equal round and reactive to light, extra-ocular motions intact. Lids and lashes normal. Conjunctiva and sclera are non-icteric and not injected. Cornea within normal limits. Periorbital areas with no swelling, redness, or edema. ENT: Nares patent. No nasal discharge, no septal abnormalities noted. Tympanic membranes are normal and external auditory canals are clear. Oropharynx with no redness, swelling, or masses, exudates, or evidence of obstruction, uvula midline. Mucous membranes moist. Neck: Trachea midline, no thyromegaly or masses palpated, and no cervical lymphadenopathy. Supple, full range of motion without nuchal rigidity, or vertebral point tenderness. No Meningismus. Chest/axilla: Normal chest wall appearance and motion. Nontender with no deformity. No lesions are appreciated. Cardiovascular: Regular rate and rhythm with a normal S1 and S2. No gallops, murmurs, or rubs. Normal PMI, no JVD. No pulse deficits. Respiratory: Lungs have equal breath sounds bilaterally, clear to auscultation and percussion. No rales, rhonchi or wheezes noted. No increased work of breathing, no retractions or nasal flaring. Back: No spinal tenderness. No costovertebral tenderness. Full range of motion. Skin: Warm, dry with normal turgor. Normal color with no rashes, no lesions, and no evidence of cellulitis. MS/ Extremity: Pulses equal, no cyanosis. Neurovascular intact. Full, normal range of motion. Neuro: Awake and alert, GCS 15, oriented to person, place, time, and situation. Cranial nerves II-XII grossly intact. Motor strength 5/5 in all extremities. Sensory grossly intact. Cerebellar exam normal. Normal gait. Psych: Awake, alert, with orientation to person, place and time. Behavior, mood, and affect are within normal limits. 11:26 Abdomen/GI: Inspection: abdomen appears normal, Bowel sounds: normal, Palpation: mild abdominal tenderness, in the right upper quadrant and right lower quadrant, Liver: no appreciated palpable abnormalities, Hernia: not appreciated. Vital Signs: 09:54 BP 133 / 92; Pulse 75; Resp 18; Temp 97.5(TE); Pulse Ox 100% on R/A; Weight 104.33 kg; hj Height 5 ft. 4 in. (162.56 cm); Pain 10/10; 11:39 BP 131 / 84; Pulse 65; Resp 16; Pulse Ox 98% on R/A; Pain 10/10; iw 12:36 BP 135 / 91; Pulse 65; Resp 18; Pulse Ox 100% on R/A; aj1 09:54 Body Mass Index 39.48 (104.33 kg, 162.56 cm) MDM: 10:38 Patient medically screened. [facility] 11:28 Data reviewed: vital signs, nurses notes, lab test result(s), radiologic studies, CT osvaldo scan. 12/07 10:11 Order name: Urine Microscopic Only; Complete Time: 10:47 [facility] 12/07 10:49 Order name: Urine Dipstick--Ancillary (enter results); Complete Time: 12:28 12/07 10:49 Order name: Urine --Ancillary (enter results); Complete Time: 12:28 12/07 10:50 Order name: Urine Culture [facility] 12/07 10:51 Order name: Basic Metabolic Panel [facility] 12/07 10:51 Order name: CBC with Diff; Complete Time: 12:28 [facility] 12/07 10:51 Order name: Creatinine for Radiology [facility] 12/07 10:51 Order name: Hepatic Function; Complete Time: 13:03 [facility] 12/07 10:51 Order name: Lipase; Complete Time: 13:03 [facility] 12/07 10:51 Order name: CT Stone Protocol; Complete Time: 11:29 [facility] 12/07 10:51 Order name: Basic Metabolic Panel; Complete Time: 13:03 [facility] [place] 12/07 10:51 Order name: IV Saline Lock; Complete Time: 11:37 [facility] 12/07 10:51 Order name: Labs collected and sent; Complete Time: 11:37 [facility] 12/07 10:51 Order name: Urine Dipstick-Ancillary (obtain specimen); Complete Time: 10:58 [facility] 12/07 12:18 Order name: Labs - recollect needed; Complete Time: 12:56 bd Administered Medications: 11:37 Drug: NS 0.9% 1000 ml Route: IV; Rate: 1 bolus; Site: right antecubital; iw 15:09 Follow up: IV Status: Completed infusion iw 11:37 Drug: Rocephin - (cefTRIAXone) 1 grams Route: IVPB; Infused Over: 30 mins; Site: right iw antecubital; 12:02 Drug: LevOfloxacin 750 mg Route: PO; iw 12:30 Follow up: Response: No adverse reaction iw 12:02 Drug: morphine 4 mg Route: IVP; Site: right antecubital; iw 12:40 Follow up: Response: No adverse reaction; Pain is decreased iw 12:03 Drug: Zofran 4 mg Route: IVP; Site: right antecubital; iw 12:30 Follow up: Response: No adverse reaction iw Disposition: 12/07/18 12:29 Discharged to Home. Impression: Urinary tract infection, site not specified, Dysuria. - Condition is Stable. - Discharge Instructions: Dysuria, Urinary Tract Infection, Adult, Urinary Tract Infection, Adult, [id number]. - Prescriptions for Levaquin 500 mg Oral Tablet - take 1 tablet by ORAL route once daily for 8-10 days; 9 tablet. Pyridium 200 mg Oral Tablet - take 1 tablet by ORAL route every 8 hours for 3 days; 9 tablet. - Medication Reconciliation Form, Thank You Letter, Antibiotic Education, Prescription Opioid Use, Work release form form. - Follow up: Private Physician; When: 2 - 3 days; Reason: Recheck today's complaints, Continuance of care, Re-evaluation by your physician. - Problem is new. - Symptoms have improved. Signatures: Dispatcher [employer] [facility] [place] Kamila Mendez Angela, RN RN ajElmer Tafoya MD MD cha Williams, Irene, Tre Valencia RN RN RACHID hj Corrections: (The following items were deleted from the chart) 12:21 10:52 Urine Culture+[id number] ordered. [facility] EDMS 12:29 12:29 12/07/2018 12:29 Discharged to Home. Impression: Urinary tract infection, site osvaldo not specified; Dysuria. Condition is Stable. Discharge Instructions: Dysuria, Urinary Tract Infection, Adult, Urinary Tract Infection, Adult, [id number]. Prescriptions for Levaquin 500 mg Oral Tablet - take 1 tablet by ORAL route once daily for 8-10 days; 9 tablet, Pyridium 200 mg Oral Tablet - take 1 tablet by ORAL route every 8 hours for 3 days; 9 tablet. and Forms are Medication Reconciliation Form, Thank You Letter, Antibiotic Education, Prescription Opioid Use. Follow up: Private Physician; When: 2 - 3 days; Reason: Recheck today's complaints, Continuance of care, Re-evaluation by your physician. [facility] 13:16 12:29 12/07/2018 12:29 Discharged to Home. Impression: Urinary tract infection, site iw not specified; Dysuria. Condition is Stable. Discharge Instructions: Dysuria, Urinary Tract Infection, Adult, Urinary Tract Infection, Adult, [id number]. Prescriptions for Levaquin 500 mg Oral Tablet - take 1 tablet by ORAL route once daily for 8-10 days; 9 tablet, Pyridium 200 mg Oral Tablet - take 1 tablet by ORAL route every 8 hours for 3 days; 9 tablet. and Forms are Medication Reconciliation Form, Thank You Letter, Antibiotic Education, Prescription Opioid Use. Follow up: Private Physician; When: 2 - 3 days; Reason: Recheck today's complaints, Continuance of care, Re-evaluation by your physician. Problem is new. Symptoms have improved. osvaldo
[2018-12-07 12:57] LABS: Albumin 4.1 g/dL (3.4-5.0); Bilirubin Direct 0.3 mg/dL (0-0.2); Bilirubin Total 1.3 mg/dL (0.2-1.0); Potassium 3.6 mmol/L (3.5-5.1); Protein, Total 8.7 g/dL (6.4-8.2)
== END 2018-12-07 13:16 | disposition home or self-care (01) ==
LOC: ER 09:43
DX: N39.0 Urinary tract infection, site not specified (principal); I10 Essential (primary) hypertension; Z85.850 Personal history of malignant neoplasm of thyroid; Z88.6 Allergy status to analgesic agent
CPT/HCPCS: 36415; 74176; 76377; 80048; 80076; 81003; 81015; 81025; 83690; 85025; 87077; 87086; 87088; 87186; 96361; 96374; 96375; 99284; J0696; J2405; J7030